=== PATIENT | male | born 1965 | race Caucasian/White ===

== ENCOUNTER 2019-03-23 11:48 | Emergency (ER) | payer OTHER ==
[~2019-03-23] VITALS: Ht 172.7 cm; Wt 70.3 kg
[2019-03-23 11:56] VITALS: Ht 172.7 cm; Wt 70.3 kg
--- NOTE | 2019-03-23 11:58 | NUR ---
DR WILD AT BEDSIDE FOR MSE
--- NOTE | 2019-03-23 12:19 | NUR ---
PT. PRESENT TO ER C/O LEFT WRIST PAIN, 11/26, ACHEY, PT. STATES HE WAS AT WORK ON A LADDER, WHEN HE LOST HIS BALANCE AND FELL OFF THE LADDER LANDING ON HIS BUTTOCKS & LEFT WRIST, DENIES HITTING HIS HEAD, DENIES ALOC, ON TRANSPORT, PT. RECEIVED 100 MCG OF FENT, PT. STATES HE HELPED VERY MUCH, PT. WAS PLACED IN SLING BY [facility], EXPLAINED POC WITH PT, PT. SITTING UP IN BED, AAOX4, SPEAKING TO FRIEND, NO ACUTE DISTRESS NOTED, PENSING X RAY, WILL MONITOR
--- NOTE | 2019-03-23 12:22 | NUR ---
TO X RAY VIA WHEELCHAIR
--- NOTE | 2019-03-23 12:59 | NUR ---
PAIN LEVEL 8/10, ACHEY, PT. STATES HE THE PAIN INCREASED TAKING X-RAYS, MADE AWARE, OBTAINED NEW MEDICATION ORDER, CARRIED OUT, PT. TOLERATED WELL, SEE EMAR
--- NOTE | 2019-03-23 13:00 | NUR ---
[facility]
[2019-03-23 13:47] LABS: BASOPHIL % 0.5 % (0-2); PLATELET COUNT 274 x10^3mcL (130-400); RED CELL DISTRIBUTION WIDTH 13.9 % (11.5-14.5)
--- NOTE | 2019-03-23 13:53 | NUR ---
GISSELLE CROSS, AT BEDSIDE, SUTURING PT. WRIST, PT. TOLERATING WELL,
[2019-03-23 13:58] LABS: CALCIUM 8.2 mg/dL (8.5-10.1); CARBON DIOXIDE 29.4 mmol/L (21-32); CHLORIDE SERUM 108 mmol/L (98-107); CREATININE SERUM 0.9 mg/dL (0.7-1.3); GFR1 > 60 mL/min; GLUCOSE SERUM 115 mg/dL (74-106); POTASSIUM SERUM 4.2 mmol/L (3.5-5.1); SODIUM SERUM 145 mmol/L (136-145)
--- NOTE | 2019-03-23 14:00 | NUR ---
APPLIED FINGER TRAP TRACTION SPLINT ON PTS LEFT WRIST PER MD ORDERS WITH 5LB WEIGHT. PT TOLERATED WELL.
[2019-03-23 14:03] LABS: ALBUMIN 3.6 g/dL (3.4-5.0); ALKALINE PHOSPHATASE 57 U/L (46-116); ALT/SGPT 29 U/L (16-63); AST/SGOT 31 U/L (15-37); BILIRUBIN TOTAL 0.6 mg/dL (0.20-1.00); TOTAL PROTEIN, SERUM 7.3 g/dL (6.4-8.2)
--- NOTE | 2019-03-23 15:35 | NUR ---
DR. ORTEGA AT BEDSIDE SPEAKING TO PT. AND FAMILY
--- NOTE | 2019-03-23 15:36 | NUR ---
GAVE A CUP OF WATER TO PT. PER DR. ORTEGA
--- NOTE | 2019-03-23 15:43 | NUR ---
AFTER DISCUSSING ALL POC WITH PT, PTS AND PTS EMPLOYER BY DR CEDENO. PT WILL GO HOME AND F/U WITH HIS PCP. DR CEDENO AGREED AND CLEARED PT TO GO HOME VS BEING ADMITTED TO HOSPITAL FOR FURTHER EVAL AND TREATMENT. PT AAOX4 NO DISTRESS AWAITING DC INST.
--- NOTE | 2019-03-23 16:00 | NUR ---
PT VOIDED WITH NO PROBLEM.
--- NOTE | 2019-03-23 16:19 | NUR ---
PT OOB ON HIS OWN ABDOMINAL BINDER APPLIED PER DR CEDENO'S ORDERS. PT TOOK A FEW STEPS ON TO WHEELCHAIR WITH NO PROBLEM. PT AAOX4 NO DISTRESS. WHEELED OUT OF ED WILL BE TRANSPORTING PT HOME VIA PRIVATE AUTO. ALL COPIES OF TEST RESULT REPORTS AND CD COPY OF XRAYS GIVEN WELL ACI PT WILL F/U WITH PCP FOR FURTHER EVAL AND ORTHOPEDIC CONSULT AND TREATMENT. PT DC'D HOME IN STABLE CONDITION
[2019-03-23 16:20] VITALS: BP 108/62
== END 2019-03-23 16:20 | disposition home or self-care (01) ==
LOC: ED 11:48 → MU 14:10 → ED 14:10 → MU 16:20
PROVIDERS: Emergency Medicine
DX: S52.502B Unspecified fracture of the lower end of left radius, initial encounter for open fracture type I or II (principal); S52.612B Displaced fracture of left ulna styloid process, initial encounter for open fracture type I or II; S32.041A Stable burst fracture of fourth lumbar vertebra, initial encounter for closed fracture; W11.XXXA Fall on and from ladder, initial encounter; Y93.89 Activity, other specified; Y92.89 Other specified places as the place of occurrence of the external cause; Y99.8 Other external cause status
CPT/HCPCS: J0696; J2001; J2270; J3010; J7060; Q0092